=== PATIENT | female | born 1990 | race Caucasian/White ===

== ENCOUNTER 2017-04-11 06:57 | Emergency (ER) | payer SELFPAY ==
[2017-04-11 06:58] VITALS: BP 153/78; PULSE 115; RESP 16; TEMP 37.1; O2SAT 95; BMI 39.1
--- NOTE | 2017-04-11 07:20 | ED.DCSUM_ITS ---
- ER Visit Summary Date of Service: 04/11/17 Chief Complaint: Fever, aches, weakness and cough History of Present Illness: The patient is a 26 F L4 greater than 2 days who presents with flulike symptoms. She complains of subjective fever with sweats. She does combine of headache without photophobia sips of her neck. She denies rash. She denies earache or sore throat. She does complain of rhinorrhea. Her cough is productive of white colored sputum. She is a smoker one half pack per day. She denies any nausea, vomiting or diarrhea. She denies any dysuria, frequency, urgency or hematuria. She does complain of myalgias and arthralgias. She also reports intermittent chest discomfort with coughing. Physical Examination: Patient is warm/hot to touch. She is sweating. Vital signs are marked for an elevated blood pressure 153/78 and a heart rate of 115. HEENT exam is remarkable for boggy nasal mucosa with clear drainage. Trach is midline. There is no stridor. Heart is rapid and regular without murmur, gallop or rub. Lungs are remarkable for wheezing on the right side only. There is no rales or rhonchi noted. No dermatologic lesions are noted. Neuro exam is nonfocal. Test Results: Two-view chest x-ray reveals no acute process. Emergency Department Course and Treatment: Patient is a smoker and has unilateral auscultatory findings of the long a chest x-ray was obtained. Treatment Plan: Symptomatic since patient's been ill for greater than 48 hours. She was given a work excuse. Disposition: Discharged to home Impression: 1. Influenza 2. Bronchospasm secondary #1 This note was generated with [employer] dictation software. It may contain incorrect words, spelling, and punctuation that were not noted in review of the chart prior to signing ED Disposition - Plan for ED Patient: Disposition: Home or Assisted Living Chief Complaint: Cold Sx Instructions: ED Flu Prescriptions: Albuterol Inhaler [Ventolin Hfa] 2 puff INHALATION Q4H PRN PRN #1 inhaler PRN Reason: Wheezing and or S OB Prednisone 40 mg PO DAILY #10 tab Referrals: Care Physician,No Primary [Primary Care Provider] - Teri Rachel [NON-STAFF] - 1 Week if not improving
--- NOTE | 2017-04-11 07:30 | RAD_ITS ---
STUDY: X-RAY CHEST REASON FOR EXAM: Female, 26 years old. cough wheezing rt side. TECHNIQUE: Frontal and lateral views of the chest. COMPARISON: None. FINDINGS: The lungs are clear and expanded. There is no demonstrated pleural abnormality. Normal size heart. Normal mediastinum and camelia. Normal visualized pulmonary arteries. Normal visualized aortic arch and descending thoracic aorta. Normal visualized thoracic spine. Normal visualized ribs, clavicles, and shoulders. There is no demonstrated abnormality of the visualized soft tissue structures of the upper abdomen. RAD/Chest PA and Lateral IMPRESSION: Normal x-ray examination of the chest. Electronically Signed: Thea Montano MD at 7:49 EST Tel , Service support ,
[2017-04-11 08:05] VITALS: PULSE 83; RESP 22; O2SAT 98
--- NOTE | 2017-04-11 08:06 | ED.RN ---
THIS NURSE REVIEWED D/C INSTRUCTIONS WITH PT. PT VERBALIZED UNDERSTANDING OF INSTRUCTIONS. PT DENIES FURTHER NEEDS OR QUESTIONS AT THIS TIME. PT AMBULATES FROM ROOM ON OWN WITHOUT ASSISTANCE FROM STAFF
== END 2017-04-11 08:10 | disposition home or self-care (01) ==
PROVIDERS: Emergency Provider Emergency Medicine
DX: J11.1 Influenza due to unidentified influenza virus with other respiratory manifestations (principal); J98.01 Acute bronchospasm; F17.200 Nicotine dependence, unspecified, uncomplicated
CPT/HCPCS: 71046; 99282

== ENCOUNTER 2020-06-17 13:48 | Outpatient (RCR) | payer OTHER, SELFPAY | END 2020-08-03 23:59 | LOC: IMMUN 13:48 | PROVIDERS: PCP Internal Medicine; Referring Provider Family Medicine; Visit Provider Family Medicine | DX: Z23 Encounter for immunization (principal) | CPT/HCPCS: 0001A; 0002A; 91300 ==

== ENCOUNTER → 2021-02-07 16:19 | Outpatient (CLI) | payer OTHER, SELFPAY | PROVIDERS: PCP Internal Medicine; Visit Provider Family Medicine | DX: Z23 Encounter for immunization (principal) ==